=== PATIENT | female | born 1995 | race Caucasian/White ===

== ENCOUNTER 2017-08-02 23:50 | Emergency (ER) | payer SELFPAY ==
[2017-08-03 00:01] VITALS: RESP 16; TEMP 97.8; O2SAT 100
[2017-08-03 00:53] VITALS: BP 98/64; PULSE 71
== END 2017-08-03 00:47 | disposition home or self-care (01) | DRG 914 ==
LOC: ED 23:50
DX: S59.911A Unspecified injury of right forearm, initial encounter (principal); M79.631 Pain in right forearm; X58.XXXA Exposure to other specified factors, initial encounter
CPT/HCPCS: 73090; 84703; 99282; 99283

== ENCOUNTER 2017-12-13 10:47 | Emergency (ER) | payer OTHER ==
[2017-12-13 11:55] VITALS: TEMP 97.5
[2017-12-13 15:29] VITALS: O2SAT 98
[2017-12-13 15:30] VITALS: BP 96/52; PULSE 68; RESP 20
== END 2017-12-13 12:12 | disposition home or self-care (01) ==
LOC: ED 10:47
DX: R06.02 Shortness of breath (principal); Z33.1 Pregnant state, incidental
CPT/HCPCS: 99282

== ENCOUNTER 2018-04-14 18:34 | Inpatient (IN) | payer OTHER ==
[2018-04-14] MEDS: SODIUM CHLORIDE 0.9% FLUSH 10 ML SOL IV SCH (18:30)
[2018-04-14] MEDS ORDERED: DIPHENHYDRAMINE 50 MG/ML SOL IV PRN (18:42)
[2018-04-14] MEDS ORDERED: LACTATED RINGERS 1,000 ML IV PRN (18:42)
[2018-04-14] MEDS ORDERED: CARBOPROST 250 MCG/ML SOL IM PRN (18:42)
[2018-04-14] MEDS ORDERED: MEPIVACAINE HCL 1% MPF 30 ML/VIAL SOL INFIL PRN (18:42)
[2018-04-14] MEDS ORDERED: EPHEDRINE SULFATE 50 MG/ML SOL IV PRN (18:42)
[2018-04-14] MEDS ORDERED: METHYLERGONOVINE MALEATE 0.2 MG/ML SOL IM PRN (18:42)
[2018-04-14] MEDS ORDERED: FENTANYL 100MCG/2ML SOL IV PRN (18:42)
[2018-04-14] MEDS ORDERED: NALOXONE HYDROCHLORIDE 0.4 MG/ML SOL IV PRN (18:42)
[2018-04-14] MEDS ORDERED: OXYTOCIN 10000 MU/ML SOL IM PRN (18:42)
[2018-04-14] MEDS ORDERED: SODIUM CHLORIDE 0.9% FLUSH 10 ML SOL IV PRN (18:42)
[2018-04-14] MEDS ORDERED: NALBUPHINE HCL 20 MG/ML SOL IV PRN (18:42)
[2018-04-14 19:37] LABS: BASOPHILS % (AUTO) 0 % (0-3); EOSINOPHILS % (AUTO) 1 % (0-9); HEMATOCRIT 35 % (35-47); HEMOGLOBIN 11.7 gm/dl (12.0-15.5); LYMPHOCYTES % (AUTO) 18.6 % (10-50); MEAN CORPUSCULAR HEMOGLOBIN 29.6 pg (27.0-32.0); MEAN CORPUSCULAR VOLUME 90 fL (81-99); MONOCYTES % (AUTO) 6.8 % (0-12); NEUTROPHILS % (AUTO) 73.2 % (37-80)
[2018-04-14] MEDS: LACTATED RINGERS 1,000 ML IV SCH (19:40)
[2018-04-14] MEDS ORDERED: FLEET ENEMA PR PRN (21:15)
[2018-04-14] MEDS ORDERED: TEMAZEPAM 15MG 15 MG CAP PO PRN (21:15)
[2018-04-14] MEDS ORDERED: BISACODYL 10 MG SUP PR PRN (21:15)
[2018-04-14] MEDS ORDERED: METHYLERGONOVINE MALEATE 0.2 MG TAB PO PRN (21:15)
[2018-04-14] MEDS ORDERED: WITCH HAZEL 1 EA PAD TOP PRN (21:15)
[2018-04-14] MEDS ORDERED: BENZOCAINE/MENTHOL 1 SPR TOP PRN (21:15)
[2018-04-15] MEDS: LACTATED RINGERS 1,000 ML IV SCH (02:52)
[2018-04-15] MEDS: SODIUM CHLORIDE 0.9% FLUSH 10 ML SOL IV SCH ×2 (02:52→11:42)
[2018-04-15] MEDS: IBUPROFEN 600 MG TAB PO PRN ×2 (04:02→14:06)
[2018-04-15] MEDS: APAP/HYDROCODONE 1 EACH TABLET PO PRN ×2 (07:50→21:37)
[2018-04-15] MEDS: DOCUSATE SODIUM 100 MG SGL PO SCH ×2 (08:00→21:37)
[2018-04-15 13:19] LABS: ABO O
[2018-04-15 13:20] LABS: RH TYPE Negative
[2018-04-15 23:01] VITALS: RESP 16
[2018-04-16] MEDS: IBUPROFEN 600 MG TAB PO PRN ×3 (02:16→15:42)
[2018-04-16] MEDS: DOCUSATE SODIUM 100 MG SGL PO SCH (08:47)
[2018-04-16] MEDS ORDERED: FOLIC ACID 1 MG TAB PO SCH (09:00)
[2018-04-16] MEDS ORDERED: MULTIVITAMIN2 1 EA TAB PO SCH (09:00)
[2018-04-16 09:54] VITALS: O2SAT 97
[2018-04-16] MEDS: APAP/HYDROCODONE 1 EACH TABLET PO PRN (10:41)
[2018-04-16 13:10] VITALS: BP 108/73; PULSE 76; TEMP 98
== END 2018-04-16 18:20 | disposition home or self-care (01) | DRG 560 ==
LOC: INTOOBSV 18:34 → OB 18:34 → UNDOADMOB 18:34 → OBSVTOIN 18:34
PROVIDERS: ADMIT Family Medicine; ATTEND Family Medicine
PROC: 10E0XZZ Delivery of Products of Conception, External Approach (ICD-10-PCS; principal; 2018-04-14)
PROC: 10907ZC Drainage of Amniotic Fluid, Therapeutic from Products of Conception, Via Natural or Artificial Opening (ICD-10-PCS; 2018-04-14)
PROC: 6A550ZT Pheresis of Cord Blood Stem Cells, Single (ICD-10-PCS; 2018-04-14)
DX: O80 Encounter for full-term uncomplicated delivery (principal); Z37.0 Single live birth; Z3A.39 39 weeks gestation of pregnancy
CPT/HCPCS: 36415; 59025; 85018; 85025; 86900; 86901; J0670; J1200; J2590; J3010; A9270-GY

== ENCOUNTER 2018-11-02 04:11 | Emergency (ER) | payer OTHER ==
[2018-11-02] MEDS ORDERED: SODIUM CHLORIDE 0.9% 1000ML 1,000 ML IV ONE (04:18)
[2018-11-02 04:19] VITALS: RESP 20; TEMP 98.1
[2018-11-02] MEDS ORDERED: CYCLOBENZAPRINE 10 MG TAB ONE (04:22)
[2018-11-02] MEDS ORDERED: APAP/HYDROCODONE 1 EACH TABLET PO ONE (04:27)
[2018-11-02 04:40] LABS: BASOPHILS % (AUTO) 0 % (0-3); EOSINOPHILS % (AUTO) 1 % (0-9); HEMATOCRIT 39 % (35-47); HEMOGLOBIN 12.9 gm/dl (12.0-15.5); LYMPHOCYTES % (AUTO) 11.2 % (10-50); MEAN CORPUSCULAR HEMOGLOBIN 28.2 pg (27.0-32.0); MEAN CORPUSCULAR VOLUME 86 fL (81-99); MONOCYTES % (AUTO) 6.9 % (0-12); NEUTROPHILS % (AUTO) 80.8 % (37-80)
[2018-11-02] MEDS ORDERED: APAP/HYDROCODONE 1 EACH TABLET ONE (04:50)
[2018-11-02 04:51] LABS: APPEARANCE,URINE Clear; BILIRUBIN,URINE NEGATIVE (NEGATIVE); COLOR,URINE Light yellow; GLUCOSE, URINE (UA) NEGATIVE (NEGATIVE); KETONES,URINE NEGATIVE (NEGATIVE); LEUKOCYTE ESTERASE ,URINE 3+ (NEGATIVE); NITRATE,URINE NEGATIVE (NEGATIVE); OCCULT BLOOD,URINE 2+ (NEG-TRACE); PH,URINE 6.5; UROBILINOGEN,URINE 0.2 (0.2-1.0 EU)
[2018-11-02 04:52] LABS: ALBUMIN 3.9 gm/dl (3.4-5.0); BILIRUBIN,TOTAL 0.5 mg/dl (0.2-1.0); CALCIUM 8.9 mg/dl (8.5-10.1); CARBON DIOXIDE 26.9 mEq/L (21-32); CREATININE 0.82 mg/dl (0.60-1.00); POTASSIUM 3.7 mMol/L (3.5-5.1); TOTAL PROTEIN 7.3 gm/dl (6.4-8.2)
[2018-11-02 04:56] LABS: BACTERIA 1+ (< 1+); CRYSTALS NEGATIVE (0-3 AVE/HPF); RBC,URINE 0-2 (0-3AV/HPF); WBC,URINE TNTC (0-5AV/HPF)
[2018-11-02] MEDS ORDERED: CEFTRIAXONE 1 GM PDS 1 GM in SODIUM CHLORIDE 0.9% 50 ML 50 ML IV SCH (05:00)
[2018-11-02] MEDS ORDERED: CEFTRIAXONE 1 GM PDS ONE (05:04)
[2018-11-02] MEDS ORDERED: KETOROLAC TROMETHAMINE 30 MG/ML SOL IV ONE (05:22)
[2018-11-02] MEDS ORDERED: KETOROLAC TROMETHAMINE 30 MG/ML SOL ONE (05:29)
[2018-11-02 07:17] VITALS: BP 101/65; PULSE 75; O2SAT 99
[2018-11-02] MEDS ORDERED: CYCLOBENZAPRINE HYDROCHLORID 5 MG TAB PO SCH (09:00)
== END 2018-11-02 07:15 | disposition home or self-care (01) | DRG 690 ==
LOC: ED 04:11
DX: N10 Acute pyelonephritis (principal); M54.5 Low back pain
CPT/HCPCS: 74176; 80053; 81001; 84703; 85025; 87077; 87088; 87186; 96365; 96366; 96374; 99070; 99284; 99285; J0696; J1885; A9270-GY

== ENCOUNTER 2018-12-14 20:36 | Emergency (ER) | payer OTHER ==
[2018-12-14 21:08] VITALS: RESP 18; TEMP 98.7
[2018-12-14 21:24] LABS: BASOPHILS % (AUTO) 1 % (0-3); EOSINOPHILS % (AUTO) 2 % (0-9); HEMATOCRIT 38 % (35-47); HEMOGLOBIN 13.1 gm/dl (12.0-15.5); LYMPHOCYTES % (AUTO) 42.5 % (10-50); MEAN CORPUSCULAR HEMOGLOBIN 29.5 pg (27.0-32.0); MEAN CORPUSCULAR HGB CONC 34.7 gm/dl (32.0-36.0); MEAN CORPUSCULAR VOLUME 85 fL (81-99); NEUTROPHILS % (AUTO) 49.8 % (37-80)
[2018-12-14 21:43] LABS: ALBUMIN 3.7 gm/dl (3.4-5.0); BILIRUBIN,TOTAL 0.3 mg/dl (0.2-1.0); CALCIUM 8.8 mg/dl (8.5-10.1); CARBON DIOXIDE 28.3 mEq/L (21-32); CREATININE 0.83 mg/dl (0.60-1.00); POTASSIUM 3.7 mMol/L (3.5-5.1); THYROID STIMULATING HORMONE 0.945 uIU/ml (0.358-3.740); TOTAL PROTEIN 6.9 gm/dl (6.4-8.2)
[2018-12-14 22:05] VITALS: PULSE 60
[2018-12-14 22:09] LABS: APPEARANCE,URINE Cloudy; BILIRUBIN,URINE NEGATIVE (NEGATIVE); COLOR,URINE Yellow; GLUCOSE, URINE (UA) NEGATIVE (NEGATIVE); KETONES,URINE NEGATIVE (NEGATIVE); LEUKOCYTE ESTERASE ,URINE NEGATIVE (NEGATIVE); NITRATE,URINE NEGATIVE (NEGATIVE); OCCULT BLOOD,URINE NEGATIVE (NEG-TRACE); PH,URINE 7.5; UROBILINOGEN,URINE 0.2 (0.2-1.0 EU)
[2018-12-14 22:21] LABS: BACTERIA 1+ (< 1+); CRYSTALS 3+ AMORPH PHOS (0-3 AVE/HPF); EPITHELIAL CELLS 0-2 (SQUAMOUS); RBC,URINE NEG (0-3AV/HPF); WBC,URINE 0-2 (0-5AV/HPF)
[2018-12-14 23:05] VITALS: BP 109/62; O2SAT 99
== END 2018-12-14 23:13 | disposition home or self-care (01) | DRG 914 ==
LOC: ED 20:36
DX: T14.8XXA Other injury of unspecified body region, initial encounter (principal); R10.9 Unspecified abdominal pain; F41.9 Anxiety disorder, unspecified
CPT/HCPCS: 36415; 74018; 80053; 81001; 84443; 84703; 85025; 99283

== ENCOUNTER 2019-02-15 11:47 | Emergency (ER) | payer OTHER ==
[2019-02-15 12:05] VITALS: RESP 18; TEMP 98.4
[2019-02-15] MEDS ORDERED: KETOROLAC TROMETHAMINE 30 MG/ML SOL IV ONE (12:45)
[2019-02-15] MEDS ORDERED: SODIUM CHLORIDE 0.9% 1000ML 1,000 ML IV SCH (12:45)
[2019-02-15] MEDS ORDERED: KETOROLAC TROMETHAMINE 30 MG/ML SOL ONE (12:52)
[2019-02-15 13:09] LABS: HEMATOCRIT 39 % (35-47); HEMOGLOBIN 12.7 gm/dl (12.0-15.5); MEAN CORPUSCULAR HEMOGLOBIN 29.3 pg (27.0-32.0); MEAN CORPUSCULAR HGB CONC 32.2 gm/dl (32.0-36.0); MEAN CORPUSCULAR VOLUME 91 fL (81-99)
[2019-02-15 13:18] LABS: CALCIUM 8.1 mg/dl (8.5-10.1); CARBON DIOXIDE 27.3 mEq/L (21-32); CREATININE 0.78 mg/dl (0.60-1.00)
[2019-02-15 13:31] LABS: COLOR,URINE PALE YELLOW
[2019-02-15 13:32] LABS: BILIRUBIN,URINE NEGATIVE (NEGATIVE); GLUCOSE, URINE (UA) NEGATIVE (NEGATIVE); KETONES,URINE NEGATIVE (NEGATIVE); LEUKOCYTE ESTERASE ,URINE 1+ (NEGATIVE); NITRATE,URINE NEGATIVE (NEGATIVE); OCCULT BLOOD,URINE TRACE INTACT (NEG-TRACE); UROBILINOGEN,URINE NORMAL (0.2-1.0 EU)
[2019-02-15 13:33] LABS: APPEARANCE,URINE SL CLOUDY
[2019-02-15 13:42] LABS: BAND NEUTROPHILS % (MANUAL) 9 %; BASOPHILS % (MANUAL) 0 % (0-3); EOSINOPHILS % (MANUAL) 0 % (0-9); LYMPHOCYTES % (MANUAL) 20 % (10-50); MONOCYTES % (MANUAL) 9 % (0-12); NEUTROPHILS % (MANUAL) 62 % (37-80); NORMAL RBCS PRESENT
[2019-02-15 13:42] LABS: RBC,URINE 0-3 (0-3AV/HPF)
[2019-02-15 13:43] LABS: BACTERIA TRACE (< 1+); CRYSTALS NEGATIVE (0-3 AVE/HPF)
[2019-02-15] MEDS ORDERED: CEFTRIAXONE 1 GM PDS 1 GM in SODIUM CHLORIDE 0.9% 50 ML 50 ML IV ONE (14:19)
[2019-02-15] MEDS ORDERED: CEFTRIAXONE 1 GM PDS ONE (14:20)
[2019-02-15 15:24] VITALS: O2SAT 98
[2019-02-15 15:25] VITALS: BP 90/56; PULSE 78
== END 2019-02-15 15:27 | disposition home or self-care (01) | DRG 103 ==
LOC: ED 11:47
DX: G43.909 Migraine, unspecified, not intractable, without status migrainosus (principal); N39.0 Urinary tract infection, site not specified; N89.8 Other specified noninflammatory disorders of vagina
CPT/HCPCS: 36415; 80048; 81001; 84703; 85007; 85027; 87077; 87088; 87186; 96365; 96374; 99283; 99284; J0696; J1885

== ENCOUNTER 2019-02-16 18:52 | Emergency (ER) | payer OTHER | END 2019-02-16 21:42 | disposition home or self-care (01) | LOC: ED 18:52 ==

== ENCOUNTER 2019-02-17 06:10 | Inpatient (IN) | payer OTHER | END 2019-02-19 16:10 | disposition home or self-care (01) | LOC: ED 06:10 → ACUTE CARE 17:24 ==